=== PATIENT | female | born 1975 | race Caucasian/White ===

== ENCOUNTER → 2017-05-23 | Outpatient (CLI) | payer OTHER ==
--- NOTE | 2017-05-23 11:03 | MR ---
EXAMINATION TYPE: MR angio head wo con DATE OF EXAM: 05/23/2017 COMPARISON: NONE HISTORY: chronic tension type headaches, arm paresthesia TECHNIQUE: Utilizing 3-D [id number] intracranial MRA of the [place] of [place] was performed. FINDINGS: The vertebrobasilar and carotid systems are patent. There is no sizable aneurysm or vascular malform ation. IMPRESSION: 1. No evidence of vascular malformation or sizable aneurysm.
--- NOTE | 2017-05-23 11:12 | MR ---
EXAMINATION TYPE: MR brain wo/w con DATE OF EXAM: 05/23/2017 COMPARISON: NONE HISTORY: chronic tension type headaches, arm paresthesia TECHNIQUE: Multiplanar, multisequence images of the brain and brainstem is performed without and with IV contras t, utilizing 20 mL intravenous MultiHance . FINDINGS: Diffusion weighted images demonstrate no evidence of a recent infarct or other diffusion ab normality. There are couple scattered areas of abnormal signal in the white matter all measuring less than 5 mm which are nonspecific. Rounded signal within the basal ganglia on the right may be related to an intraparenchymal cyst or re mote lacunar infarction. Prominent Virchow-Roosevelt spaces also consideration. Smaller lesions seen on t he left. There is a small focal area of abnormal signal on T2 imaging within the medulla on the left anteriorl y. No enhancement. Midline structures demonstrate normal morphology. The craniocervical junction appears within normal limits. Post contrast images demonstrate no abnormal enhancement. The dural venous sinuses appear pa tent. The visualized sinuses are clear and the globes are intact. Changes of chronic sinusitis noted. Nasal septal deviation noted. IMPRESSION: 1. Minimal nonspecific white matter changes. 2. No evidence of acute ischemia. 3. Areas of abnormal signal within the basal ganglia bilaterally greater on the right may represent r emote lacunar infarction or intraparenchymal cyst. Prominent Virchow-Roosevelt spaces also in the differe ntial diagnosis. 4. Small area on T2 imaging within the medulla on the left anteriorly measuring 4 mm. Correlate for r emote ischemia.
== END | disposition home or self-care (01) ==
LOC: RADMRIMAIN 09:38
PROVIDERS: ATTEND Psychiatry & Neurology Neurology
DX: R90.82 White matter disease, unspecified (principal); G44.229 Chronic tension-type headache, not intractable; R20.2 Paresthesia of skin
CPT/HCPCS: 70544; 70553; A9577

== ENCOUNTER → 2017-12-20 | Outpatient (CLI) | payer OTHER ==
--- NOTE | 2017-12-20 11:01 | MM ---
Reason for exam: screening (asymptomatic). Baseline mammogram. Physical Findings: Nurse did not find any significant physical abnormalities on exam. MG Screening Mammo w CAD Bilateral CC and MLO view(s) were taken. There are scattered fibroglandular densities. There is no discrete abnormality. These results were verbally communicated with the patient and result sheet given to the patient on 12/20/17. ASSESSMENT: Negative, BI-RAD 1 RECOMMENDATION: Routine screening mammogram of both breasts in 1 year.
== END | disposition home or self-care (01) ==
LOC: RADMAMWWP 10:02
PROVIDERS: ATTEND Obstetrics & Gynecology
DX: Z12.31 Encounter for screening mammogram for malignant neoplasm of breast (principal)
CPT/HCPCS: 77067

== ENCOUNTER → 2018-12-23 | Outpatient (CLI) | payer OTHER ==
--- NOTE | 2018-12-24 10:31 | MM ---
Reason for exam: screening (asymptomatic). Last mammogram was performed 1 year ago. Physical Findings: A clinical breast exam by your physician is recommended on an annual basis and results should be correlated with mammographic findings. MG 3D Screening Mammo W/Cad Bilateral CC and MLO view(s) were taken. Prior study comparison: December 20, 2017, bilateral MG screening mammo w CAD. The breast tissue is heterogeneously dense. This may lower the sensitivity of mammography. There is no discrete abnormality. ASSESSMENT: Negative, BI-RAD 1 RECOMMENDATION: Routine screening mammogram of both breasts in 1 year.
== END | disposition home or self-care (01) ==
LOC: RADMAMWWP 10:05
PROVIDERS: ATTEND Obstetrics & Gynecology
DX: Z12.31 Encounter for screening mammogram for malignant neoplasm of breast (principal)
CPT/HCPCS: 77063; 77067

== ENCOUNTER → 2019-12-26 | Outpatient (CLI) | payer OTHER ==
--- NOTE | 2019-12-30 09:10 | MM ---
Reason for exam: screening (asymptomatic). Last mammogram was performed 1 year ago. History: Took hormonal contraceptives for 2 years. Physical Findings: A clinical breast exam by your physician is recommended on an annual basis and results should be correlated with mammographic findings. MG 3D Screening Mammo W/Cad Bilateral CC and MLO view(s) were taken. Prior study comparison: December 23, 2018, bilateral MG 3d screening mammo w/cad. December 20, 2017, bilateral MG screening mammo w CAD. There are scattered fibroglandular densities. No significant changes when compared with prior studies. ASSESSMENT: Negative, BI-RAD 1 RECOMMENDATION: Routine screening mammogram of both breasts in 1 year.
== END | disposition home or self-care (01) ==
LOC: RADMAMWWP 16:47
PROVIDERS: ATTEND Obstetrics & Gynecology
DX: Z12.31 Encounter for screening mammogram for malignant neoplasm of breast (principal)
CPT/HCPCS: 77063; 77067

== ENCOUNTER → 2021-01-27 | Outpatient (CLI) | payer OTHER ==
--- NOTE | 2021-01-31 11:04 | MM ---
Reason for exam: screening (asymptomatic). Last mammogram was performed 1 year and 1 month ago. History: Took hormonal contraceptives for 2 years. Physical Findings: A clinical breast exam by your physician is recommended on an annual basis and results should be correlated with mammographic findings. MG 3D Screening Mammo W/Cad Bilateral CC and MLO view(s) were taken. Prior study comparison: December 26, 2019, bilateral MG 3d screening mammo w/cad. December 23, 2018, bilateral MG 3d screening mammo w/cad. There are scattered fibroglandular densities. No significant changes when compared with prior studies. ASSESSMENT: Benign, BI-RAD 2 RECOMMENDATION: Routine screening mammogram of both breasts in 1 year.
== END | disposition home or self-care (01) ==
LOC: RADMAMWWP 09:48
PROVIDERS: ATTEND Obstetrics & Gynecology
DX: Z12.31 Encounter for screening mammogram for malignant neoplasm of breast (principal)
CPT/HCPCS: 77063; 77067

== ENCOUNTER → 2021-06-23 | Outpatient (CLI) | payer OTHER ==
--- NOTE | 2021-06-23 22:33 | CT ---
EXAMINATION TYPE: CT abdomen pelvis wo con DATE OF EXAM: 06/23/2021 COMPARISON: None HISTORY: Small bowel obstruction, pt states LT side herniation TECHNIQUE: CT scan of the abdomen and pelvis performed without IV or oral contrast CT DLP: 986.20 mGycm Automated exposure control for dose reduction was used. FINDINGS: Lack of IV and oral contrast limits evaluation. Lower thorax: There is a 4 mm incidental nodule in the left lower lobe 02/12. There is no cardiomegaly. Liver, gallbladder, spleen, pancreas and adrenal glands are unremarkable. No abnormal biliary ductal dilatation seen. Bilateral extrarenal pelvis seen bilaterally. No hydronephrosis or evidence of nephrolithiasis. The u rinary bladder is partially distended, unremarkable as seen. Distal esophagus, stomach, small and large bowel loops are normal in caliber. There is no evidence of small or large bowel obstruction. The appendix is normal in appearance. No diverticulosis seen. The uterus is slightly enlarged and has a globular appearance. A small amount of fluid is seen in the endometrial cavity. The ovaries are not definitely identified however there are fluid-filled lesions in the bilateral adnexa suggesting ovarian/adnexal cysts. Bilateral adnexal surgical changes noted. There is no pneumoperitoneum or ascites. No enlarged lymph nodes seen. The aorta is nonaneurysmal. The inferior vena cava is normal in course. The midline abdominal wall is slightly diastatic. There is a 2.7 cm defect the lower abdominal wall . No bowel herniates through the defect. Small amount of fat protrudes in the right inguinal regio n anterior to the femoral vessels. No acute osseous abnormalities seen. No aggressive osseous lesion seen. There is mild narrowing of th e intervertebral spaces at L1-2 and L5-S1. IMPRESSION: 4 MM INCIDENTAL NODULE LEFT LOWER LOBE. CORRELATE WITH FLEISCHNER CRITERIA FOR RECOMMENDATIONS ON WOR KUP AND/OR FOLLOW-UP. NO EVIDENCE OF SMALL OR LARGE BOWEL OBSTRUCTION. MIDLINE INFRAUMBILICAL ABDOMINAL WALL FAT-CONTAINING HERNIA WITH MILD DIASTASIS OF THE RECTUS ABDOMIN OUS. SMALL AMOUNT OF FAT PROTRUDES IN THE LOWER RIGHT INGUINAL REGION ANTERIOR TO THE FEMORAL VESSELS AND LATERAL TO THE RECTUS MUSCLES, THIS MAY REPRESENT A FAT-CONTAINING RIGHT FEMORAL HERNIA. SUSPECT LEIOMYOMATA AND BILATERAL OVARIAN/ADNEXAL CYSTS.
== END | disposition home or self-care (01) ==
LOC: RADCTMAIN 17:09
PROVIDERS: ATTEND Surgery Plastic and Reconstructive Surgery
DX: K42.9 Umbilical hernia without obstruction or gangrene (principal)
CPT/HCPCS: 74176

== ENCOUNTER → 2021-07-14 | Outpatient (CLI) | payer OTHER | END | disposition home or self-care (01) | LOC: LABWHC1 10:04 | PROVIDERS: ATTEND Surgery Plastic and Reconstructive Surgery | DX: R07.89 Other chest pain (principal); R00.1 Bradycardia, unspecified | CPT/HCPCS: 36415; 93005 ==

== ENCOUNTER 2021-07-29 07:39 | Day surgery (SDC) | payer OTHER ==
[2021-07-25 11:32] VITALS: BMI 36.3
[~2021-07-29 07:39] MED LIST: DEXAMETHASONE SOD PHOSPHATE 4 MG/ML 1 ML VIAL IV ONE; HEPARIN SODIUM,PORCINE/PF 5,000 UNIT/0.5 ML SYRINGE SQ PRN; HYDROmorphone 0.5 MG/0.5 ML SYRINGE IVP PRN; LACTATED RINGERS 1,000 ML IV SCH; LIDOCAINE 1% (10MG/ML) FOR IV START INTRADERMA PRN; MIDAZOLAM 2 MG/2 ML VIAL IV PRN; ONDANSETRON 4 MG/2 ML VIAL IVP ONE
[2021-07-29] MEDS ORDERED: ACETAMINOPHEN TAB 500 MG TAB PO PRN (07:50)
[2021-07-29] MEDS ORDERED: SCOPOLAMINE 1.5MG/72HR PATCH TRANSDERM PRN (07:50)
[2021-07-29] MEDS ORDERED: GABAPENTIN 300 MG CAP PO PRN (07:50)
--- NOTE | 2021-07-29 07:50 | P.GSHP ---
History of Present Illness H&P Date: 07/29/21 CHIEF COMPLAINT: Ventral hernia. HISTORY OF PRESENT ILLNESS: The patient is a 45-year-old female who presents with swelling along the abdomen for over 1 month with pain and tenderness. Findings were consistent with ventral hernia. She reports change in bowel habits as a result. Now she presents for further evaluation and management. PAST MEDICAL HISTORY: Please see list and reviewed. PAST SURGICAL HISTORY: Please see list and reviewed. MEDICATIONS: Please see list and reviewed. ALLERGIES: Please see list and reviewed. SOCIAL HISTORY: Please see list and reviewed. FAMILY HISTORY: No reports of Crohn disease or ulcerative colitis. REVIEW OF ORGAN SYSTEMS: CONSTITUTIONAL: No reports of fevers or chills. Has morbid obesity.. GI: Denies any blood in stools or constipation. HEENT: Denies any trouble with vision, hearing or nosebleeds. No difficulty swallowing. LYMPHATIC: The patient denies any lumps and bumps around the neck. ENDOCRINE: Denies any thyroid disorders. Denies any blood sugar glucose intolerance. RESPIRATORY: Denies pneumonia. Denies any troubles with breathing or dyspnea on exertion. CARDIOVASCULAR: Denies any chest pain, palpitations, or recent heart attacks. GENITOURINARY: Denies any blood in urine or increased urinary frequency. MUSCULOSKELETAL: Denies any back pain, stiffness, joint arthritis. NEUROLOGIC: Denies any numbness or tingling along the distal extremities. No seizure disorders or headaches. PSYCHIATRIC: Has depression. No suidical ideation. HEMATOLOGIC: Denies any abnormal bleeding or bruising. BREASTS: Denies any breast lumps, pain or nipple discharge. PHYSICAL EXAM: VITAL SIGNS: Stable GENERAL: Well-developed pleasant female in no acute distress. HEENT: No scleral icterus. Extraocular movements grossly intact. Moist buccal mucosa. NECK: Supple without lymphadenopathy. CHEST: Unlabored respirations. Equal bilateral excursions. CARDIOVASCULAR: Regular rate and rhythm. Distal 2+ pulses. ABDOMEN: Soft, nondistended. Tender along the abdomen. Protuberant. MUSCULOSKELETAL: No clubbing, cyanosis, or edema. SKIN: Well perfused. PSYCH: Alert and oriented. No focal or lateralizing signs. ASSESSMENT: 1. Ventral hernia. 2. Morbid obesity, BMI 36.3 PLAN: 1. Recommend proceeding with robotic ventral hernia repair with mesh. 2. Benefits and risks of surgical intervention was discussed including possibility of open technique. 3. DVT prophylaxis. 4. Antibiotic prophylaxis. 5. She is elevated risk with BMI over 35 and morbid obesity. Past Medical History Past Medical History: Diabetes Mellitus Additional Past Medical History / Comment(s): Hx Gestational Diabetes with last 2 pregnancies. History of Any Multi-Drug Resistant Organisms: None Reported Past Surgical History: Section, Orthopedic Surgery Additional Past Surgical History / Comment(s): Section X4, D&C, right carpal tunnel surgery, cryotherapy. Past Anesthesia/Blood Transfusion Reactions: No Reported Reaction, Motion Sickness, Postoperative Nausea & Vomiting (PONV) Past Psychological History: Anxiety Smoking Status: Former smoker Past Alcohol Use History: None Reported Additional Past Alcohol Use History / Comment(s): Quit smoking in 2004. Past Drug Use History: None Reported - Past Family History Mother Family Medical History: No Reported History Medications and Allergies Home Medications Medication Instructions Recorded Confirmed Type Venlafaxine HCl [Effexor] 37.5 mg PO QAM 07/25/21 07/25/21 History Allergies Allergy/AdvReac Type Severity Reaction Status Date / Time aspirin Allergy Unknown Verified 07/25/21 11:15 Penicillins Allergy Unknown Verified 07/25/21 11:15 Childhood Sulfa (Sulfonamide Allergy Unknown Verified 07/25/21 11:15 Antibiotics) Childhood
[2021-07-29] MEDS ORDERED: MIDAZOLAM 2 MG/2 ML VIAL IV ONE (09:19)
[2021-07-29 09:21] LABS: Basophils # (A) 0.1 k/uL (0-0.2); Basophils % (A) 1 %; Eosinophils # (A) 0.6 k/uL (0-0.7); Eosinophils % (A) 7 %; HCT 45.5 % (34.0-46.0); HGB 15.4 gm/dL (11.4-16.0); Lymphocytes # (A) 1.8 k/uL (1.0-4.8); Lymphocytes % (A) 23 %; MCH 31.4 pg (25.0-35.0); MCHC 33.8 g/dL (31.0-37.0); MCV 92.7 fL (80.0-100.0); Mean Platelet Volume 8.4; Monocytes # (A) 0.4 k/uL (0-1.0); Monocytes % (A) 4 %; Neutrophils # (A) 4.9 k/uL (1.3-7.7); Neutrophils % (A) 62 %; Platelet Count 338 k/uL (150-450); RBC 4.91 m/uL (3.80-5.40); RDW 14.3 % (11.5-15.5); WBC 7.9 k/uL (3.8-10.6)
[2021-07-29 09:28] VITALS: RESP 16
[2021-07-29 09:30] LABS: ALT 14 U/L (4-34); AST 22 U/L (14-36); African American GFR (CKD) >90 (>60 ml/min/1.73 sqM); Albumin 3.5 g/dL (3.5-5.0); Alkaline Phosphatase 72 U/L (38-126); Anion Gap 7 mmol/L; Blood Urea Nitrogen 16 mg/dL (7-17); Calcium 9.2 mg/dL (8.4-10.2); Carbon Dioxide 27 mmol/L (22-30); Chloride 104 mmol/L (98-107); Glucose 113 mg/dL (74-99); Non-African American GFR(CKD) >90 (>60 ml/min/1.73 sqM); Sodium 138 mmol/L (137-145); Total Bilirubin 0.5 mg/dL (0.2-1.3); Total Protein 6.8 g/dL (6.3-8.2)
[2021-07-29] MEDS ORDERED: fentaNYL (PF) 50 MCG/ML 2 ML AMP ONE (09:31)
[2021-07-29] MEDS ORDERED: KETOROLAC 15 MG/ML 1 ML VIAL ONE (09:31)
[2021-07-29] MEDS ORDERED: PROPOFOL 10 MG/ML 20 ML VIAL IV ONE (09:31)
[2021-07-29] MEDS ORDERED: SUCCINYLCHOLINE CHLORIDE 100 MG/5 ML SYR IV ONE (09:31)
[2021-07-29] MEDS ORDERED: GLYCOPYRROLATE 0.2 MG/ML 2 ML VIAL ONE (09:31)
[2021-07-29] MEDS ORDERED: LIDOCAINE 1% INJ 10MG/ML (20 ML MDV) ONE (09:31)
[2021-07-29] MEDS ORDERED: DEXAMETHASONE SOD PHOSPHATE 4 MG/ML 1 ML VIAL ONE (09:31)
[2021-07-29] MEDS ORDERED: ROCURONIUM 10 MG/ML (5 ML VIAL) IV ONE (09:31)
[2021-07-29] MEDS ORDERED: NEOSTIGMINE 1 MG/ML 10 ML VIAL ONE (09:31)
[2021-07-29] MEDS ORDERED: ROPIVACAINE 5 MG/ML 30 ML VIAL ONE (09:31)
[2021-07-29] MEDS ORDERED: LIDOCAINE 2%-EPI 1:100,000 20 ML VIAL SQ ONE (10:04)
[2021-07-29 11:33] VITALS: TEMP 97.3
[2021-07-29] MEDS ORDERED: ONDANSETRON 4 MG/2 ML VIAL ONE (11:37)
--- NOTE | 2021-07-29 11:38 | P.OP ---
Date of Procedure: 07/29/21 Description of Procedure: SURGEON: BROOKLYNN FU MD PREOPERATIVE DIAGNOSES: 1. Initial incarcerated incisional hernia 2. Morbid obesity due to excess calories, BMI 37.9 3. Depressive disorder POSTOPERATIVE DIAGNOSES: 1. Initial incarcerated incisional hernia 2. Morbid obesity due to excess calories, BMI 37.9 3. Depressive disorder 4. Severe pelvic adhesions OPERATION: 1. Robotic-assisted da Neris Xi laparoscopic repair of initial incarcerated incisional hernia with with mesh, ventralight ST mesh 11.4 cm 2. Robotic-assisted da Neris Xi laparoscopic lysis of adhesions over 30 minutes Anesthesia: GETA, regional, local Estimated Blood Loss (ml): 5 Pathology: None COMPLICATIONS: None. Operative Findings: 1. Lower midline incarcerated incisional hernia a prior Pfannenstiel incision incorporating greater omentum extending to the left lower quadrant subcutaneous tissue over 8 x 6 cm 2. Fascial defect 6 x 4 cm lower midline 3. Fascia repaired using #1 V-lock suture INDICATIONS: The patient is a 45-year-old female who presents with incarcerated incisional hernia with swelling along the left lower abdomen. Surgical intervention with laparoscopic versus robotic and open techniques were reviewed. Placement of mesh was also reviewed. Benefits and risks were thoroughly described. Informed consent was obtained. DESCRIPTION OF PROCEDURE: The patient was brought into the operating room and laid in supine position. After general induction, the abdomen had been prepped and draped in standard sterile fashion. Ioban draping was also placed. Prior to incision, a timeout protocol was confirmed with surgical team regarding the patient's name including procedures to be performed. The robot was primed prior to the procedure. A field block using local anesthetic was placed along hernia site including the proposed port sites. Initial incision was made with an #11 blade along the left upper quadrant. A 0 degree 5 mm laparoscopic trocar entry was performed and insufflated. Three 8 mm ports were placed along the upper abdominal wall under direct localization after exchanging the 5-mm for an 8 mm port. Placements of the ports were 15 cm from the target anatomy and 10 cm apart. An accessory 12 mm port was placed at the right upper quadrant for exchange of mesh including sutures. The [employer] robot was previously primed, prepped and draped then docked from the right side of the patient onto the left side of the patient. I then sat at the robot Da Neris Xi console where working arms of the robot including Bovie cautery connected to robotic scissors, needle mule driver, and graspers placed by the executive assistant to general counsel. Dense omental adhesions of the pelvis to abdominal wall and extending to the epigastrium was identified. The adhesions were lysed using scissors on electro- Bovie cautery for 30 minutes. Incarcerated omental contents were found along the lower midline. The anterior dome of the uterus was adherent to the pelvis. Moderate dissection was performed to release the incarcerated omental contents extending into the left lower quadrant subcutaneous tissue requiring extensive lysis of adhesions. The defects were reduced. The fascial defect lower midline measured 6 x 4 cm. The incarcerated contents were reduced as the peritoneal fat was cleaned from the abdominal wall. Next, hemostasis was checked with cautery. The hernia defects were oversewn using #1 nonabsorbable V-lock suture with fascial imbrication x 2. Next, ventralight ST mesh 11.4 cm was placed with the rough side towards the abdominal wall as to cover the epigastric including umbilical defect. 2-0 VLOC 12 inch nonabsorbable sutures were used to fixate the mesh. A final endoscopic imaging was obtained. All instruments and pneumoperitoneum were evacuated from the abdominal cavity. The da Neris Xi robot was undocked from the patient. I re-scrubbed into the case for closure of incisions. The fascia of the 12-mm port was probed and less than 8-mm in size. The incisions were reapproximated using 4-0 Monocryl in an interrupted subcuticular fashion. Liquid glue was applied to the skin after cleansing the skin with normal saline and dilute hydrogen peroxide. An abdominal binder was placed. At the end of the procedure, needle, sponge, and instrument count had been verified correct by surgical oncologist. The patient was taken to the postanesthesia care unit in stable condition. Plan - Discharge Summary Discharge Rx Participant: Yes New Discharge Prescriptions: New oxyCODONE HCL [OxyIR] 5 mg PO Q4H PRN 3 Days #18 tab PRN Reason: Pain Acetaminophen Tab [Tylenol Tab] 1,000 mg PO Q6HR PRN #30 tablet PRN Reason: Pain Continue Venlafaxine HCl [Effexor] 37.5 mg PO QAM Discharge Medication List Venlafaxine HCl [Effexor] 37.5 mg PO QAM 07/25/21 [History] Acetaminophen Tab [Tylenol Tab] 1,000 mg PO Q6HR PRN #30 tablet 07/29/21 [Rx] oxyCODONE HCL [OxyIR] 5 mg PO Q4H PRN 3 Days #18 tab 07/29/21 [Rx] Follow up Appointment(s)/Referral(s): Brooklynn Fu MD [STAFF PHYSICIAN] - 08/04/21 Patient Instructions/Handouts: Ventral Hernia Repair (GEN), Laparoscopic Herniorrhaphy (IP), Abdominal Binder (DC), *[facility] - Managing Your Pain After Surgery Without Opioids, Safe Disposal of Narcotics (DC) Activity/Diet/Wound Care/Special Instructions: DO NOT REMOVE UMBILICAL DRESSING. Using antibacterial soap. No lifting over 4 pounds 4 weeks, August 28March shower. No bathtub soaks for 2 weeks, August 12 Wear abdominal binder daily for comfort except for showering. Use ice along incisions for today to prevent swelling. Take tylenol, aleve/ibuprofen, simethicone scheduled for 3 days for best pain re lief Discharge Disposition: HOME SELF-CARE
[2021-07-29] MEDS ORDERED: ONDANSETRON 4 MG/2 ML VIAL IVP ONE (11:43)
--- NOTE | 2021-07-29 12:37 | P.ANPRN ---
Procedure Note - Anesthesia - Nerve Block Performed Bilateral Transversus Abdominis Single Time Out Performed: Yes Date of Procedure: 07/29/21 Procedure Start Time: Procedure Stop Time: Location of Patient: PreOp Indication: Acute Post-Operative Pain, Requested by Surgeon Sedation Type: Sedate with meaningful contact maintained Preparation: Sterile Prep Position: Supine Needle Types: Pajunk Needle Gauge: 21 Ultrasound used to visualize needle placement: Yes Ultrasound used to observe medication spread: Yes Blood Aspirated: No Pain Paresthesia on Injection Noted: No Resistance on Injection: Normal Image Stored and Saved: Yes Events: Uneventful and Well Tolerated (Ropivacaine 0.5% 20 mL plus dexamethasone 4 mg given bilaterally)
[2021-07-29 12:58] VITALS: BP 112/65; PULSE 77
== END 2021-07-29 13:20 | disposition home or self-care (01) ==
LOC: OR 07:39
PROVIDERS: ATTEND Surgery Plastic and Reconstructive Surgery
DX: K43.0 Incisional hernia with obstruction, without gangrene (principal); N73.6 Female pelvic peritoneal adhesions (postinfective); F41.9 Anxiety disorder, unspecified; F32.9 Major depressive disorder, single episode, unspecified; E11.9 Type 2 diabetes mellitus without complications; E66.01 Morbid (severe) obesity due to excess calories; Z68.37 Body mass index [BMI] 37.0-37.9, adult; Z87.891 Personal history of nicotine dependence; Z88.0 Allergy status to penicillin; Z88.2 Allergy status to sulfonamides
CPT/HCPCS: 49655; 81025; 64488; 80053; 85025; C1781; J2250; J1100; J2710; J0690; J2405; J2001; J3010; J2795; J1885; J0330; J2704; J1790; J1644